=== PATIENT | female | born 2000 | race Caucasian/White ===

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

== ENCOUNTER 2021-01-10 13:15 | Inpatient (IN) | payer OTHER ==
[2021-01-10 14:03] VITALS: BMI 28.7
[2021-01-10 14:38] LABS: BASO % 0.4 % (0-2.0); EOS % 0.6 % (0-4.5); HEMOGLOBIN 12.3 GM/dL (10.7-15.3); LYMPH % 20.5 % (8-40); MCH 27.5 pg (25.7-33.7); MCHC 34.2 g/dl (32.0-36.0); MEAN CELL VOLUME 80.4 fl (80-96); MEAN PLT VOLUME 10.9 fl (7.5-11.1); MONO % 5.9 % (3.8-10.2); NEUT % 72.6 % (42.8-82.8); PLATELET COUNT 194 K/MM3 (134-434); RBC 4.48 M/mm3 (3.60-5.2); RDW 14.4 % (11.6-15.6); WHITE BLOOD COUNT 6.4 K/mm3 (4.0-10.0)
[2021-01-10 15:06] LABS: INR 0.85 (0.83-1.09); PROTHROMBIN TIME (PATIENT) 10.5 SEC (9.7-13.0)
[2021-01-10 15:07] LABS: BLOOD UREA NITROGEN 5.9 mg/dL (7-18); CALCIUM 8.1 mg/dL (8.5-10.1)
[2021-01-10 15:09] LABS: ACTIVATED PTT 27.3 SECONDS (25.2-36.5)
[2021-01-10 15:11] LABS: CREATININE 0.4 mg/dL (0.55-1.3)
[2021-01-10] MEDS ORDERED: PROMETHAZINE HCL 25 MG/1 ML VIAL IVPUSH ONE (15:21)
[2021-01-10] MEDS ORDERED: BUTORPHANOL TARTRATE 2 MG/ML VIAL IVPUSH ONE (15:21)
[2021-01-10] MEDS ORDERED: OXYTOCIN 30 UNITS in 0.9% NS 30 UNIT/500 ML INFUS.BAG IVPB SCH (15:30)
[2021-01-10] MEDS ORDERED: DEXTROSE 5%-LACTATED RINGERS 1,000 ML IV SCH (15:30)
[2021-01-10] MEDS: VANCOMYCIN 1,000 MG in DEXTROSE 5%-WATER - 250 ML IVPB SCH (18:00)
[2021-01-10] MEDS ORDERED: VANCOMYCIN 1,000 MG in DEXTROSE 5%-WATER - 250 ML IVPB SCH (18:00)
[2021-01-10] MEDS ORDERED: PROMETHAZINE HCL 25 MG/1 ML VIAL ONE (20:02)
[2021-01-10] MEDS ORDERED: BUTORPHANOL TARTRATE 2 MG/ML VIAL ONE (20:02)
[2021-01-10] MEDS ORDERED: PCA PUMP NR ONE (22:51)
[2021-01-10] MEDS ORDERED: FENTANYL/BUPIVACAINE/NS/PF - PCEA - 50 ML DISP.SYRIN EP ONE (22:51)
[2021-01-10] MEDS ORDERED: FENTANYL/BUPIVACAINE/NS/PF - PCEA - 50 ML DISP.SYRIN EP SCH (23:45)
[2021-01-10] MEDS ORDERED: NALOXONE HCL 0.4 MG/ML VIAL IVPUSH PRN (23:51)
[2021-01-11] MEDS ORDERED: ELECTROLYTE-148 SOLN 1,000 ML IV ONE (02:00)
[2021-01-11] MEDS: VANCOMYCIN 1,000 MG in DEXTROSE 5%-WATER - 250 ML IVPB SCH ×2 (02:00→13:26)
[2021-01-11] MEDS ORDERED: FENTANYL/BUPIVACAINE/NS/PF - PCEA - 50 ML DISP.SYRIN EP ONE (04:14)
[2021-01-11] MEDS ORDERED: OXYTOCIN 20 UNITS in 0.9% NS 20 UNIT/1,000 ML INFUS.BAG IV ONE (05:41)
[2021-01-11] MEDS ORDERED: METHYLERGONOVINE MALEATE 0.2 MG/1 ML AMP IM PRN (07:06)
[2021-01-11] MEDS ORDERED: BENZOCAINE 28 GM HEMORRHOIDAL OINTMENT TP PRN (07:06)
[2021-01-11] MEDS ORDERED: BISACODYL 10 MG SUPP.RECT RC PRN (07:06)
[2021-01-11] MEDS ORDERED: WITCH HAZEL 50% (TUCKS) 40 PAD/JAR PAD TP PRN (07:06)
[2021-01-11] MEDS ORDERED: BENZOCAINE 20% 57 GM BOTTLE TP PRN (07:06)
[2021-01-11] MEDS ORDERED: OXYTOCIN 20 UNITS in 0.9% NS 20 UNIT/1,000 ML INFUS.BAG IV SCH (07:15)
[2021-01-11] MEDS ORDERED: IBUPROFEN 600 MG TABLET (FP) PO ONE (08:30)
[2021-01-11 08:32] LABS: CORD HCO3 21.8 mmHg (20-29); CORD PCO2 66.5 mmHg (30-78); CORD pH 7.133 (7.14-7.44)
[2021-01-11 08:33] LABS: CORD BASE EXCESS -7.2 mmol/L (0-2); CORD HCO3 20.1 mmHg (20-29); CORD PCO2 47.3 mmHg (30-78); CORD pH 7.247 (7.14-7.44)
[2021-01-11] MEDS: PRENATAL VITAMINS W/ FOLIC ACID TABLET (FP) PO SCH (10:33)
[2021-01-11] MEDS: FERROUS SO4 325 MG TABLET (FP) PO SCH ×2 (10:33→22:00)
[2021-01-11] MEDS: ACETAMINOPHEN 325 MG TABLET (FP) PO PRN ×2 (10:33→20:19)
[2021-01-11] MEDS: IBUPROFEN 600 MG TABLET (FP) PO PRN ×2 (10:36→20:19)
[2021-01-12 09:07] LABS: BASO % 0.1 % (0-2.0); EOS % 0.7 % (0-4.5); HEMATOCRIT 31.1 % (32.4-45.2); HEMOGLOBIN 10.6 GM/dL (10.7-15.3); LYMPH % 10.1 % (8-40); MCH 27.7 pg (25.7-33.7); MEAN CELL VOLUME 81.5 fl (80-96); MEAN PLT VOLUME 11.1 fl (7.5-11.1); MONO % 4.3 % (3.8-10.2); NEUT % 84.8 % (42.8-82.8); PLATELET COUNT 141 K/MM3 (134-434); RBC 3.81 M/mm3 (3.60-5.2); RDW 14.8 % (11.6-15.6); WHITE BLOOD COUNT 13.9 K/mm3 (4.0-10.0)
[2021-01-12] MEDS: FERROUS SO4 325 MG TABLET (FP) PO SCH (10:35)
[2021-01-12] MEDS: PRENATAL VITAMINS W/ FOLIC ACID TABLET (FP) PO SCH (10:35)
[2021-01-12 16:48] VITALS: BP 98/68; PULSE 90; TEMP 97.9
[2021-01-12] MEDS ORDERED: SENNOSIDES/DOCUSATE COMBO (SENNA PLUS) TABLET (UD) PO PRN (22:00)
== END 2021-01-12 15:45 | disposition home or self-care (01) | DRG 560 ==
LOC: JLDR 13:15 → J3W 01-11 08:35
PROVIDERS: ADMIT Obstetrics & Gynecology; ATTEND Obstetrics & Gynecology
PROC: 3E033VJ Introduction of Other Hormone into Peripheral Vein, Percutaneous Approach (ICD-10-PCS; 2021-01-10)
PROC: 10E0XZZ Delivery of Products of Conception, External Approach (ICD-10-PCS; principal; 2021-01-11)
PROC: 0W8NXZZ Division of Female Perineum, External Approach (ICD-10-PCS; 2021-01-11)
DX: O48.0 Post-term pregnancy (principal); O99.824 Streptococcus B carrier state complicating childbirth; B95.1 Streptococcus, group B, as the cause of diseases classified elsewhere; Z3A.40 40 weeks gestation of pregnancy; Z37.0 Single live birth
CPT/HCPCS: 36415; 36600; 59409; 80048; 82803; 85025; 85610; 85730; 86780; 86850; 86900; 86901; C9803; U0003